=== PATIENT | male | born 1985 | race American Indian/Alaskan Native ===

== ENCOUNTER 2017-02-13 10:12 | Emergency (ER) | payer OTHER ==
[2017-02-13 10:12] VITALS: BMI 25.3
[2017-02-13 10:30] VITALS: TEMP 98.5
--- NOTE | 2017-02-13 11:06 | ED PDOC ---
Arrival/HPI <Kurt Louie - Last Filed: 02/13/17 11:23> - General Historian: Patient - History of Present Illness Time/Duration: Other (since yesterday) Context: Home <Kilo Vides - Last Filed: 02/13/17 15:01> - General Chief Complaint: Cough, Cold, Congestion Time Seen by Provider: 02/13/17 11:05 - History of Present Illness Narrative History of Present Illness (Text): 02/13/17 11:06 This 32 yo male with PMH abnormal EKG, and HTN, presents to this ED c/o cough since yesterday. Today, patient has been having b/l pleuritic CP, when he is coughing. Patient denies fever, SHETH, orthopnea, leg swelling, palpaitaion, recent travel or sick contact. (Kilo Vides) Past Medical History - Provider Review Nursing Documentation Reviewed: Yes - Infectious Disease Hx of Infectious Diseases: None - Cardiac Hx CT: Yes - Pulmonary Hx Respiratory Disorders: Yes Hx Asthma: Yes - Neurological Hx Neurological Disorder: No - HEENT Hx HEENT Disorder: No - Renal Hx Renal Disorder: No - Endocrine/Metabolic Hx Endocrine Disorders: No - Hematological/Oncological Hx Blood Disorders: No - Integumentary Hx Dermatological Disorder: No - Musculoskeletal/Rheumatological Hx Musculoskeletal Disorders: No - Gastrointestinal Hx Gastrointestinal Disorders: No - Genitourinary/Gynecological Hx Genitourinary Disorders: No - Psychiatric Hx Psychophysiologic Disorder: No Hx Substance Use: No - Surgical History Hx Cardiac Catheterization: Yes - Anesthesia Hx Anesthesia: No <Kilo Vides - Last Filed: 02/13/17 15:01> Family/Social History - Physician Review Nursing Documentation Reviewed: Yes Family/Social History: No Known Family HX Smoking Status: Former Smoker Hx Alcohol Use: No Hx Substance Use: No <Kilo Vides - Last Filed: 02/13/17 15:01> Allergies/Home Meds <Kurt Louie - Last Filed: 02/13/17 11:23> <Kilo Vides - Last Filed: 02/13/17 15:01> Allergies/Adverse Reactions: Allergies No Known Allergies Allergy (Verified 02/13/17 10:29) Review of Systems - Review of Systems Constitutional: Normal. absent: Fatigue, Weight Change, Fevers Eyes: Normal ENT: Normal Respiratory: Cough. absent: SOB, Sputum, Wheezing Cardiovascular: Other ((+) b/l pleuritic CP). absent: Palpitations, Edema, Calf Pain, SHETH, Orthopnea, Syncope Gastrointestinal: Normal. absent: Abdominal Pain, Nausea, Vomiting Genitourinary Male: Normal. absent: Dysuria, Frequency, Hematuria Musculoskeletal: Normal. absent: Back Pain, Neck Pain Skin: Normal Neurological: Normal Endocrine: Normal Hemo/Lymphatic: Normal Psychiatric: Normal <Vides,Nahim P - Last Filed: 02/13/17 15:01> Physical Exam Temperature: Afebrile Blood Pressure: Normal Pulse: Regular Respiratory Rate: Normal Appearance: Positive for: Well-Appearing, Non-Toxic, Comfortable Pain Distress: None Mental Status: Positive for: Alert and Oriented X 3 - Systems Exam Head: Present: Atraumatic, Normocephalic Pupils: Present: PERRL Extroacular Muscles: Present: EOMI Conjunctiva: Present: Normal Mouth: Present: Moist Mucous Membranes Pharnyx: Present: Normal. No: ERYTHEMA, EXUDATE, TONSILS ENLARGED Nose (External): Present: Atraumatic Nose (Internal): Present: Normal Inspection Neck: Present: Normal Range of Motion, Trachea Midline. No: Meningeal Signs Respiratory/Chest: Present: Clear to Auscultation, Good Air Exchange, Tender to Palpation (Mild tenderness on b/l anteriro chest wall area. No rash, swelling or ecchymosis). No: Respiratory Distress, Accessory Muscle Use, Wheezes, Decreased Breath Sounds, Rales, Retracting, Rhonchi, Tachypneic Cardiovascular: Present: Regular Rate and Rhythm, Normal S1, S2. No: Murmurs Abdomen: Present: Normal Bowel Sounds. No: Tenderness, Distention, Peritoneal Signs Back: Present: Normal Inspection Upper Extremity: Present: Normal Inspection. No: Cyanosis, Edema Lower Extremity: Present: Normal Inspection. No: Edema Neurological: Present: GCS=15, CN II-XII Intact, Speech Normal Skin: Present: Warm, Dry, Normal Color. No: Rashes Psychiatric: Present: Alert, Oriented x 3, Normal Insight <Vides,Nahim P - Last Filed: 02/13/17 15:01> Vital Signs Temp Pulse Resp BP Pulse Ox 02/13/17 12:41 74 18 119/65 100 02/13/17 10:24 98.5 F 72 18 148/83 97 Medical Decision Making <Edgar Louieitriy - Last Filed: 02/13/17 11:23> Re-evaluation Time: 14:51 Reassessment Condition: Re-examined, Improved - EKG Interpretation Interpreted by ED Physician: Yes (Sinus Bradycardia @[address] changes. Normal Interval) Type: 12 lead EKG <Kilo Vides - Last Filed: 02/13/17 15:01> ED Course and Treatment: 02/13/17 12:[address] Mishra Bottle Filler regarding chest congestion and b/l pleuritic CP. He review Troponin, EKG and CXR report. He recommended D dimer, and UDS 02/13/17 14:49 Dr. Mishra stated patient could be discharge home. He ordered RA factor. RA result will be available in 1-2 days (Send Out) (Kilo Vides) - Lab Interpretations Lab Results: Lab Results 02/13/17 14:05: Urine Opiates Screen Negative, Urine Methadone Screen Negative, Ur Barbiturates Screen Negative, Ur Phencyclidine Scrn Negative, Ur Amphetamines Screen Negative, U Benzodiazepines Scrn Negative, U Oth Cocaine Metabols Negative, U Cannabinoids Screen Negative 02/13/17 13:00: D-Dimer, Quantitative 0.19 02/13/17 11:35: Troponin I < 0.01 - RAD Interpretation Narrative RAD Interpretations (Text): 02/13/17 12:37 Accession No. : [id number] Patient Name / ID : SUDARSHAN LEON / [id number] Exam Date : 02/13/2017 11:23:07 ( Approved ) Study Comment : Sex / Age : M / 32Y Creator : Ayden Puckett MD Dictator : Ayden Puckett MD Choir Teacher : Lamp Shade Sewer : Ayden Puckett MD Approver2 : Report Date : 02/13/2017 12:18:58 My Comment : HISTORY: cough COMPARISON: No prior. FINDINGS: LUNGS: No active pulmonary disease. PLEURA: No significant pleural effusion identified, no pneumothorax apparent. CARDIOVASCULAR: Normal. OSSEOUS STRUCTURES: No significant abnormalities. VISUALIZED UPPER ABDOMEN: Normal. OTHER FINDINGS: None. IMPRESSION: No active disease. (Kilo Vides) Radiology Orders: 02/13/17 11:10 CHEST PORTABLE [RAD] Stat - Medication Orders Current Medication Orders: Discontinued Medications Albuterol/Ipratropium (Duoneb 3 Mg/0.5 Mg (3 Ml) Ud) 3 ml IH STAT STA Stop: 02/13/17 11:13 Last Admin: 02/13/17 11:38 Dose: 3 ML Promethazine HCl/Dextromethorphan (Phenergan Dm Syrup) 5 ml PO STAT STA Stop: 02/13/17 11:13 Last Admin: 02/13/17 11:53 Dose: 5 ML - PA / TUBE SPLICER / Resident Statement / has reviewed & agrees with the documentation as recorded. <Kurt Louie - Last Filed: 02/13/17 11:23> Disposition/Present on Arrival <Kurt Louie - Last Filed: 02/13/17 11:23> - Present on Arrival Any Indicators Present on Arrival: No History of DVT/PE: No History of Uncontrolled Diabetes: No Urinary Catheter: No History of Decub. Ulcer: No History Surgical Site Infection Following: None - Disposition Have Diagnosis and Disposition been Completed?: Yes Disposition Time: 14:51 Patient Plan: Discharge <Kilo Vides - Last Filed: 02/13/17 15:01> - Disposition Diagnosis: Acute bronchitis Disposition: HOME/ ROUTINE Patient Problems: Current Active Problems Problem Status Diagnosed Acute bronchitis Acute Condition: GOOD Discharge Instructions (ExitCare): Acute Bronchitis (ED) Additional Instructions: Call private doctor for follow up visit in 1-2 days. Take medication as instructed. return to emergency if symptoms worsen. Prescriptions: Doxycycline Monohydrate 100 mg PO BID #14 tablet Promethazine DM [Dextromethorphan/Promethazine 15 MG/5 Ml-6.25] 5 ml PO Q4H PRN #120 ml PRN Reason: Cough Referrals: Rohit Mishra MD [Staff Provider] - Follow up with primary Mike Doshi MD [Staff Provider] - Follow up with primary Forms: WORK NOTE
[2017-02-13] MEDS ORDERED: Albuterol-Ipratrop 3 mg / 0.5 (3 ml) UD IH STA (11:12)
[2017-02-13] MEDS ORDERED: Promethazine DM 6.25 mg-15 mg/5 ml Syrup PO STA (11:12)
--- NOTE | 2017-02-13 12:20 | RAD ---
HISTORY: cough COMPARISON: No prior. FINDINGS: LUNGS: No active pulmonary disease. PLEURA: No significant pleural effusion identified, no pneumothorax apparent. CARDIOVASCULAR: Normal. OSSEOUS STRUCTURES: No significant abnormalities. VISUALIZED UPPER ABDOMEN: Normal. OTHER FINDINGS: None. IMPRESSION: No active disease.
[2017-02-13 15:11] VITALS: BP 133/69; PULSE 69; RESP 16; O2SAT 99
--- NOTE | 2017-02-13 18:26 | CARD ---
APPROVED REPORT EKG Measurement Heart [id number] <Conclusion> Sinus bradycardia Early repolarization Otherwise normal ECG
== END 2017-02-13 15:12 | disposition home or self-care (01) ==
LOC: ED 10:12
DX: J20.9 Acute bronchitis, unspecified (principal); I10 Essential (primary) hypertension; Z87.891 Personal history of nicotine dependence

== ENCOUNTER 2017-06-11 10:38 | Emergency (ER) | payer OTHER ==
[2017-06-11 10:38] VITALS: BMI 25.3
[2017-06-11 10:49] VITALS: TEMP 98.4
[2017-06-11 11:31] LABS: BASO # 0.01 K/mm3 (0.0-2.0); BASO % 0.2 % (0.0-3.0); EOS # 0.1 (0.0-0.7); EOS % 1.3 % (1.5-5.0); GRAN # 2.49 (1.4-6.5); GRAN % 53.6 % (50.0-68.0); HEMOGLOBIN 13.9 gm/dL (14.0-18.0); LYMPH # 1.6 (1.2-3.4); LYMPH % 34.6 % (22.0-35.0); MEAN CELL VOLUME 87.9 fL (80.0-105.0); MEAN CORPUSCULAR HEMOGLOBIN 30.7 pg (25.0-35.0); MEAN CORPUSCULAR HGB CONC 34.9 g/dl (31.0-37.0); MEAN PLATELET VOLUME 9.4 fl (7.0-11.0); MONO # 0.5 (0.1-0.6); MONO % 10.3 % (1.0-6.0); PLATELET COUNT 206 10^3/uL (120.0-450.0); RBC 4.53 10^6/uL (3.5-6.1); RED CELL DISTRIBUTION WIDTH 12.6 % (11.5-14.5); WHITE BLOOD COUNT 4.7 10^3/ul (4.5-11.0)
[2017-06-11 11:37] VITALS: RESP 18; O2SAT 100
[2017-06-11 11:40] LABS: ALB/GLOB RATIO 1.3 (1.1-1.8); ALBUMIN 4.5 g/dL (3.0-4.8); ALT/SGPT 44 U/L (7-56); AST/SGOT 31 U/L (15-59); BLOOD UREA NITROGEN 15 mg/dL (7-21); CALCIUM 9.6 mg/dL (8.4-10.5); GFR AFRICAN-AMERICAN > 60; GFR NON-AFRICAN AMERICAN > 60; MAGNESIUM 1.9 mg/dL (1.7-2.2)
[2017-06-11 11:43] LABS: D DIMER 0.19 mg/L FEU (0-0.50); INR 1.06 (0.93-1.08); PARTIAL THROMBOPLASTIN TIME 28.9 Seconds (23.7-30.8); PROTHROMBIN TIME 11.4 Seconds (9.9-11.8)
[2017-06-11 11:55] LABS: TROPONIN I < 0.01 ng/mL
[2017-06-11 11:56] LABS: CK-MB 2.2 ng/mL (0.0-3.6)
--- NOTE | 2017-06-11 12:19 | ED PDOC ---
Arrival/HPI - General Chief Complaint: Chest Pain Time Seen by Provider: 06/11/17 11:17 Historian: Patient - History of Present Illness Narrative History of Present Illness (Text): 06/11/17 11:50 Rosana Martin is a 32 year old male, whose past medical history includes hypertension, presents to the Emergency department complaining of left side chest pain since yesterday with a headache, which was resolved. He describes the chest pain being brief sharp pains and this morning when he woke up he had chest pain again. Patient reports that he is a former smoker and had a cardiac catheterization which was negative. Patient denies shortness of breath, fever, chills cough, nausea, vomiting, diarrhea, diaphoresis, jaw pain, back pain, lower extremity pain/swelling, or other complaints. Time/Duration: 24 hours Symptom Onset: Sudden Symptom Course: Unchanged Quality: Other (sharp chest pain ) Activities at Onset: Light Modifying Factors (Text): None Associated Symptoms (Text): headache Past Medical History - Provider Review Nursing Documentation Reviewed: Yes - Infectious Disease Hx of Infectious Diseases: None - Cardiac Hx [place]: Yes - Pulmonary Hx Respiratory Disorders: Yes Hx Asthma: Yes - Neurological Hx Neurological Disorder: No - HEENT Hx HEENT Disorder: No - Renal Hx Renal Disorder: No - Endocrine/Metabolic Hx Endocrine Disorders: No - Hematological/Oncological Hx Blood Disorders: No - Integumentary Hx Dermatological Disorder: No - Musculoskeletal/Rheumatological Hx Musculoskeletal Disorders: No - Gastrointestinal Hx Gastrointestinal Disorders: No - Genitourinary/Gynecological Hx Genitourinary Disorders: No - Psychiatric Hx Psychophysiologic Disorder: No Hx Substance Use: No - Surgical History Hx Cardiac Catheterization: Yes - Anesthesia Hx Anesthesia: No Family/Social History - Physician Review Nursing Documentation Reviewed: Yes Family/Social History: Unknown Family HX Smoking Status: Former Smoker Hx Alcohol Use: No Hx Substance Use: No Allergies/Home Meds Allergies/Adverse Reactions: Allergies No Known Allergies Allergy (Verified 06/11/17 10:49) Home Medications: Home Meds Medication Instructions Recorded Confirmed Albuterol/Ipratropium [Combivent 2 puff IH PRN PRN 06/11/17 06/11/17 Respimat] Review of Systems - Physician Review All systems were reviewed & negative as marked: Yes - Review of Systems Constitutional: absent: Fevers Respiratory: absent: SOB Cardiovascular: Chest Pain Musculoskeletal: absent: Neck Pain Neurological: Headache Physical Exam Vital Signs Temp Pulse Resp BP Pulse Ox 06/11/17 12:24 79 18 121/63 100 06/11/17 11:36 88 18 122/65 100 06/11/17 10:47 98.4 F 79 16 124/89 95 Temperature: Afebrile Blood Pressure: Normal Pulse: Regular Respiratory Rate: Normal Appearance: Positive for: Well-Appearing, Non-Toxic, Comfortable Pain Distress: None Mental Status: Positive for: Alert and Oriented X 3 - Systems Exam Head: Present: Atraumatic, Normocephalic Pupils: Present: PERRL Extroacular Muscles: Present: EOMI Conjunctiva: Present: Normal Mouth: Present: Moist Mucous Membranes Neck: Present: Normal Range of Motion Respiratory/Chest: Present: Clear to Auscultation, Good Air Exchange. No: Respiratory Distress, Accessory Muscle Use Cardiovascular: Present: Regular Rate and Rhythm, Normal S1, S2, Other ( Tenderness on left chest wall). No: Murmurs Abdomen: Present: Normal Bowel Sounds. No: Tenderness, Distention, Peritoneal Signs Back: Present: Normal Inspection Upper Extremity: Present: Normal Inspection. No: Cyanosis, Edema Lower Extremity: Present: Normal Inspection. No: Edema Neurological: Present: GCS=15, CN II-XII Intact, Speech Normal Skin: Present: Warm, Dry, Normal Color. No: Rashes Psychiatric: Present: Alert, Oriented x 3, Normal Insight, Normal Concentration Medical Decision Making ED Course and Treatment: 06/11/17 12:26 Impression: 32 year old male with left chest pain. Differential Diagnosis included but are not limited to: musculoskeletal chest wall vs. anxiety vs. [place] (less likely) Plan: -- EKG -- Chest X-ray -- Aspirin and Fexeril -- Reassess and disposition Progress Notes: EKG: Ordered, reviewed, and independently interpreted the EKG. Rate : 72 BPM Rhythm : NSR Interpretation : No ST-segment elevations or depressions, no T-wave inversions, normal intervals. Comparison : No previous EKG for comparison. 06/11/17 12:40 Patient's symptoms resolved. Labs reviewed. Troponin is negative and since pain has been since yesterday with a most likely MSK a second is not necessary for repeat. Dimer negative. Patient will follow up with his PMD and needs to follow up with a Hide Dropper. - Lab Interpretations Lab Results: 06/11/17 11:20 06/11/17 11:20 Lab Results 06/11/17 11:20: Sodium 141, Potassium 4.2, Chloride 104, Carbon Dioxide 28, Anion Gap 13, BUN 15, Creatinine 1.1, Est GFR ( Amer) > 60, Est GFR (Non- Af Amer) > 60, Random Glucose 90, Calcium 9.6, Magnesium 1.9, Total Bilirubin 0.5, AST 31, ALT 44, Alkaline Phosphatase 67, Lactate Dehydrogenase 557, Total Creatine Kinase 538 H, CK-MB (CK-2) 2.2, CK-MB (CK-2) % Cancelled, Troponin I < 0.01, Total Protein 8.1, Albumin 4.5, Globulin 3.6, Albumin/Globulin Ratio 1.3 06/11/17 11:20: PT 11.4, INR 1.06, APTT 28.9, D-Dimer, Quantitative 0.19 06/11/17 11:20: WBC 4.7 D, RBC 4.53, Hgb 13.9 L, Hct 39.8 L, MCV 87.9, MCH 30.7 , MCHC 34.9, RDW 12.6, Plt Count 206, MPV 9.4, Gran % 53.6, Lymph % (Auto) 34.6 , [place] % (Auto) 10.3 H, Eos % (Auto) 1.3 L, Baso % (Auto) 0.2, Gran # 2.49, Lymph # 1.6, [place] # 0.5, Eos # 0.1, Baso # 0.01 I have reviewed the lab results: Yes Interpretation: Abnormal lab values (CK mildly elevated. Treated with PO fluids. ) - RAD Interpretation Radiology Orders: 06/11/17 11:17 CHEST PORTABLE [RAD] Stat - EKG Interpretation Interpreted by ED Physician: Yes Type: 12 lead EKG - Medication Orders Current Medication Orders: Discontinued Medications Aspirin (Aspirin) 325 mg PO STAT STA Stop: 06/11/17 11:18 Last Admin: 06/11/17 11:41 Dose: 325 mg Cyclobenzaprine HCl (Flexeril) 10 mg PO STAT STA Stop: 06/11/17 11:19 Last Admin: 06/11/17 11:41 Dose: 10 mg - Scribe Statement The provider has reviewed the documentation as recorded by the Scribe 06/11/2017 Debby Mayes Provider Scribe Attestation: All medical record entries made by the Scribe were at my direction and personally dictated by me. I have reviewed the chart and agree that the record accurately reflects my personal performance of the history, physical exam, medical decision making, and the department course for this patient. I have also personally directed, reviewed, and agree with the discharge instructions and disposition. Disposition/Present on Arrival - Present on Arrival Any Indicators Present on Arrival: No History of DVT/PE: No History of Uncontrolled Diabetes: No Urinary Catheter: No History of Decub. Ulcer: No History Surgical Site Infection Following: None - Disposition Have Diagnosis and Disposition been Completed?: Yes Diagnosis: Chest pain Disposition: HOME/ ROUTINE Disposition Time: 12:40 Patient Plan: Discharge Condition: IMPROVED Discharge Instructions (ExitCare): Chest Pain (ED) Additional Instructions: Mr Martin thank you for letting us take care of you today. Your provider was Dr. Chang. You were treated for Chest Pain. The emergency medical care you received today was directed at your acute symptoms. If you were prescribed any medication, please fill it and take as directed. It may take several days for your symptoms to resolve. Return to the Emergency Department if your symptoms worsen, do not improve, or if you have any other problems. Please contact your doctor or call one of the physicians/clinics you have been referred to that are listed on the Patient Visit Information form that is included in your discharge packet. Bring any paperwork you were given at discharge with you along with any medications you are taking to your follow up visit. Our treatment cannot replace ongoing medical care by a primary care provider (PCP) outside of the emergency department. Thank you for allowing the [facility] team to be part of your care today. If you had an X-Ray or CT scan: A Radiologist will review the ED reading if any change in treatment is needed we will contact you. If you had a blood, urine, or wound culture: It will take several days for the results, if any change in treatment is needed we will contact you. If you had an STI test: It will take 48 hours for the results. Please call after 1 week if you have not heard back. Prescriptions: Cyclobenzaprine [Flexeril] 5 mg PO Q8 #14 tab Ibuprofen [Motrin] 600 mg PO Q6 PRN #30 tab PRN Reason: Pain, Moderate (4-7) Referrals: Eliana Ahuja MD [Primary Care Provider] - Follow up with primary Forms: [employer] (Tajik), WORK NOTE
[2017-06-11 12:24] VITALS: BP 121/63; PULSE 79
--- NOTE | 2017-06-11 13:19 | RAD ---
HISTORY: chest pain COMPARISON: 02/13/2017 FINDINGS: LUNGS: No active pulmonary disease. PLEURA: No significant pleural effusion identified, no pneumothorax apparent. CARDIOVASCULAR: Normal. OSSEOUS STRUCTURES: No significant abnormalities. VISUALIZED UPPER ABDOMEN: Normal. OTHER FINDINGS: None. IMPRESSION: No active disease.
--- NOTE | 2017-06-11 17:27 | CARD ---
APPROVED REPORT EKG Measurement Heart [id number] <Conclusion> Normal sinus rhythm with sinus arrhythmia Normal ECG
== END 2017-06-11 12:40 | disposition home or self-care (01) ==
LOC: ED 10:38
DX: R07.9 Chest pain, unspecified (principal); I10 Essential (primary) hypertension

== ENCOUNTER 2017-06-28 07:04 | Emergency (ER) | payer OTHER ==
--- NOTE | 2017-06-28 07:11 | ED PDOC ---
Arrival/HPI - General Chief Complaint: Upper Extremity Problem/Injury Time Seen by Provider: 06/28/17 07:10 Historian: Patient - History of Present Illness Narrative History of Present Illness (Text): 06/28/17 07:25 32yo M with PMHx of Asthma here for evaluation of right shoulder pain. He states that he was lifting 10-15 lb pallets yesterday and he felt and heard an audible pop in his right shoulder. He woke up this morning with slightly worse right shoulder pain. Denies any physical trauma. Does note that he has similar episodes in the past when he was diagnosed with an AC joint separation. Shoulder Abduction makes the pain worse. He does report some tingling down his right arm. Sensation intact. Muscle strength intact. Denies any other symptoms. PMHx: Asthma PSHx: Heart Cath (Negative) Social Hx: Denies tob, denies etoh, denies illicit drugs NKDA Time/Duration: 24 hours Symptom Onset: Sudden Symptom Course: Worsening Activities at Onset: Other (lifting pallets) Past Medical History - Provider Review Nursing Documentation Reviewed: Yes - Infectious Disease Hx of Infectious Diseases: None - Cardiac Hx Cardiac Disorders: No - Pulmonary Hx Respiratory Disorders: Yes Hx Asthma: Yes - Neurological Hx Neurological Disorder: No - HEENT Hx HEENT Disorder: No - Renal Hx Renal Disorder: No - Endocrine/Metabolic Hx Endocrine Disorders: No - Hematological/Oncological Hx Blood Disorders: No - Integumentary Hx Dermatological Disorder: No - Musculoskeletal/Rheumatological Hx Musculoskeletal Disorders: No - Gastrointestinal Hx Gastrointestinal Disorders: No - Genitourinary/Gynecological Hx Genitourinary Disorders: No - Psychiatric Hx Psychophysiologic Disorder: No Hx Substance Use: No - Surgical History Hx Cardiac Catheterization: Yes - Anesthesia Hx Anesthesia: No Family/Social History - Physician Review Nursing Documentation Reviewed: Yes Family/Social History: Unknown Family HX Smoking Status: Former Smoker Hx Alcohol Use: No Hx Substance Use: No Allergies/Home Meds Allergies/Adverse Reactions: Allergies No Known Allergies Allergy (Verified 06/28/17 07:14) Home Medications: Home Meds Medication Instructions Recorded Confirmed Albuterol/Ipratropium [Combivent 2 puff IH PRN PRN 06/11/17 06/28/17 Respimat] Review of Systems - Physician Review All systems were reviewed & negative as marked: Yes - Review of Systems Constitutional: Normal Eyes: Normal ENT: Normal Respiratory: Normal Cardiovascular: Normal Gastrointestinal: Normal Genitourinary Male: Normal Musculoskeletal: Other (right shoulder pain) Skin: Normal Neurological: Normal Psychiatric: Normal Physical Exam Vital Signs Reviewed: Yes Vital Signs Temp Pulse Resp BP Pulse Ox 06/28/17 07:12 97.8 F 91 H 18 141/80 97 Temperature: Afebrile Blood Pressure: Normal Pulse: Regular Respiratory Rate: Normal Appearance: Positive for: Well-Appearing, Non-Toxic, Comfortable Pain Distress: Moderate Mental Status: Positive for: Alert and Oriented X 3 - Systems Exam Head: Present: Atraumatic, Normocephalic Extroacular Muscles: Present: EOMI Conjunctiva: Present: Normal Mouth: Present: Moist Mucous Membranes Neck: Present: Normal Range of Motion Respiratory/Chest: Present: Clear to Auscultation, Good Air Exchange. No: Respiratory Distress, Accessory Muscle Use, Wheezes, Rhonchi Abdomen: No: Tenderness, Distention, Guarding Upper Extremity: Present: NORMAL PULSES, Tenderness, Neurovascularly Intact, Capillary Refill < 2s, Other (Tender to palpation of AC joint and glenohumeral joint. No Obvious deformity. Decreased passive and active range of motion). No : Temperature Abnormalties Lower Extremity: Present: Normal Inspection. No: Edema, CALF TENDERNESS Neurological: Present: GCS=15, CN II-XII Intact, Motor Func Grossly Intact, Gait Normal Skin: Present: Warm, Dry, Normal Color Psychiatric: Present: Alert, Oriented x 3 Medical Decision Making ED Course and Treatment: 06/28/17 07:38 32yo M with Right shoulder pain - Ibuprofen PO - Right Shoulder XRay - Reassess and dispo 06/28/17 07:59 - Xray reviewed by me. No bony joint deformities. No apparent joint space disease. Discussed findings with the patient. All questions and concerns addressed. Work note requested. Prescribed Naproxen. Patient to follow up with ortho. - RAD Interpretation Radiology Orders: 06/28/17 07:23 SHOULDER RIGHT [RAD] Stat - Medication Orders Current Medication Orders: Discontinued Medications Ibuprofen (Motrin Tab) 400 mg PO STAT STA Stop: 06/28/17 07:24 Last Admin: 06/28/17 07:34 Dose: 400 mg - PA / [employer] COOK / Resident Statement BART has reviewed & agrees with the documentation as recorded. BART has examined the patient and agrees with the treatment plan. Disposition/Present on Arrival - Present on Arrival Any Indicators Present on Arrival: No History of DVT/PE: No History of Uncontrolled Diabetes: No Urinary Catheter: No History Surgical Site Infection Following: None - Disposition Have Diagnosis and Disposition been Completed?: Yes Diagnosis: Shoulder pain, right Disposition: HOME/ ROUTINE Disposition Time: 08:01 Patient Plan: Discharge Condition: GOOD Discharge Instructions (ExitCare): Shoulder Sprain (ED) Additional Instructions: 1. Follow up with your Primary Care physician as soon as possible. 2. Follow up with Orthopedics, Call for appointment 3. Take Naproxen as directed as needed 4. Rest, Ice, and use sling for comfort 5. Return to the ER with any concerning symptoms. Prescriptions: Naproxen 500 mg PO Q8 PRN #21 tab PRN Reason: Pain, Moderate (4-7) Referrals: Christine Maguire MD [Staff Provider] - Follow up with primary Forms: WORK NOTE
[2017-06-28 07:18] VITALS: BP 141/80; PULSE 91; RESP 18; TEMP 97.8; O2SAT 97; BMI 28.0
--- NOTE | 2017-06-28 10:26 | RAD ---
PROCEDURE: Radiographs of the Right Shoulder HISTORY: hx of AC separation, shoulder pain No antecedent history of trauma provided. COMPARISON: No prior. FINDINGS: BONES: Normal. No fracture. JOINTS: Normal. Glenohumeral and acromioclavicular joints preserved. No osteoarthritis. SOFT TISSUES: Normal. OTHER FINDINGS: None. IMPRESSION: No acute findings related to/accounting for the clinical presentation. No preliminary report provided by emergency department personnel.
== END 2017-06-28 08:13 | disposition home or self-care (01) ==
LOC: ED 07:04
DX: M25.511 Pain in right shoulder (principal)